=== PATIENT | male | born 1970 | race Caucasian/White ===

== ENCOUNTER 2024-12-12 06:28 | Day surgery (SDC) | payer BC ==
[2024-12-12] MEDS: Lactated Ringers 1,000 ML IV SCH (07:09)
[2024-12-12] MEDS ORDERED: Midazolam 1 MG/ML 2 ML SDV ONE (07:23)
[2024-12-12] MEDS ORDERED: Propofol 200 MG/20 ML SDV ONE ×2 (07:23→08:05)
[2024-12-12] MEDS ORDERED: fentaNYL 50 MCG/ML SDV ONE (07:23)
== END 2024-12-12 09:44 | disposition home or self-care (01) ==
LOC: JP.SDS 06:28
PROVIDERS: ATTEND Surgery
DX: Z12.11 Encounter for screening for malignant neoplasm of colon (principal); D12.5 Benign neoplasm of sigmoid colon; K63.5 Polyp of colon; K57.30 Diverticulosis of large intestine without perforation or abscess without bleeding; I11.0 Hypertensive heart disease with heart failure; I50.9 Heart failure, unspecified; E11.9 Type 2 diabetes mellitus without complications; F17.200 Nicotine dependence, unspecified, uncomplicated
CPT/HCPCS: 00811; 45380; 45385; 88305; J2250; J2704; J3010; J7120